=== PATIENT | female | born 1950 | race Caucasian/White ===

== ENCOUNTER 2024-06-02 01:43 | Emergency (ER) | payer MEDICARE, BC, SELFPAY ==
[2024-06-02 01:43] VITALS: BMI 38.4
[2024-06-02 01:45] VITALS: BP 170/83
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
[2024-06-02] MEDS: ADACEL 0.5 ML IM (03:52)
[2024-06-02] MEDS: KEFLEX 500 MG PO (04:50)
[2024-06-02 06:38] VITALS: BP 117/57
== END 2024-06-02 06:46 | disposition home or self-care (01) ==
LOC: EMR 01:43
PROVIDERS: EMERGENCY PHYSICIAN Emergency Medicine; FAMILY PHYSICIAN Family Medicine
DX: S01.01XA Laceration without foreign body of scalp, initial encounter (principal); W18.39XA Other fall on same level, initial encounter; R03.0 Elevated blood-pressure reading, without diagnosis of hypertension; Z23 Encounter for immunization
CPT/HCPCS: 99284; 12002; 90471; 70450; 90715